=== PATIENT | male | born 1995 | race Caucasian/White ===

== ENCOUNTER → 2021-06-08 08:25 | Outpatient (CLI) | payer OTHER, SELFPAY ==
--- NOTE | 2021-06-08 08:39 | XR_ITS ---
PROCEDURE: XR KNEE LT 3V CLINICAL INDICATION: ARTHRITIS COMPARISON: No exams were available for comparison FINDINGS: No fracture or dislocation. No lytic or blastic change. There is normal mineralization. The joint spaces are well-preserved. No significant degenerative/arthritic changes. No erosive changes evident. Other findings:Incidental note made of 2 small bone islands in the left femoral condyle IMPRESSION: No acute findings. Dictated by: Gerson Bess MD 06/08/2021 13:26 Gerson Bess MD in [place] 06/08/2021 13:26
--- NOTE | 2021-06-08 08:39 | XR_ITS ---
PROCEDURE: XR HIP LT 2-3V W/PELVIS CLINICAL INDICATION: ARTHRITIS COMPARISON: CR PELAP PELVIS AP ONLY from 06/30/2015 FINDINGS: No fracture or dislocation is evident. No significant degenerative change. No lytic or blastic change. Unremarkable soft tissues. IMPRESSION: Negative left hip Dictated by: Gerson Bess MD 06/08/2021 13:28 Gerson Bess MD in [place] 06/08/2021 13:28
== END ==
PROVIDERS: PCP Nurse Practitioner Family; Visit Provider Chiropractor
DX: M13.80 Other specified arthritis, unspecified site (principal); M25.552 Pain in left hip; M25.562 Pain in left knee
CPT/HCPCS: 73502; 73562